=== PATIENT | female | born 1980 | race Caucasian/White ===

== ENCOUNTER 2024-05-19 09:31 | Outpatient (CLI) | payer BC ==
[2024-05-19] MEDS ORDERED: Magnevist 469MG/ML 20 ML VIAL ONE (11:17)
== END 2024-05-19 09:32 | disposition home or self-care (01) ==
LOC: MRI 09:31
PROVIDERS: ATTEND Family Medicine
DX: R10.13 Epigastric pain (principal); R10.11 Right upper quadrant pain; R11.2 Nausea with vomiting, unspecified; K44.9 Diaphragmatic hernia without obstruction or gangrene; D18.03 Hemangioma of intra-abdominal structures; K83.8 Other specified diseases of biliary tract; Z90.49 Acquired absence of other specified parts of digestive tract
CPT/HCPCS: 74183; 76377; A9579